=== PATIENT | male | born 1985 | race Two or more races ===

== ENCOUNTER 2024-09-08 09:10 | Emergency (ER) | payer BC ==
[~2024-09-08] VITALS: Ht 170.2 cm; Wt 72.6 kg
[2024-09-08] MEDS ORDERED: ACETAMINOPHEN ES 500 MG TABLET ONE (10:04)
[2024-09-08] MEDS: ACETAMINOPHEN ES 500 MG TABLET PO ONE (10:09)
[2024-09-08 13:23] VITALS: BP 131/76; TEMP 98.2; O2SAT 99
== END 2024-09-08 13:23 | disposition home or self-care (01) ==
LOC: ER 09:20
DX: S50.812A Abrasion of left forearm, initial encounter (principal); S50.811A Abrasion of right forearm, initial encounter; S80.212A Abrasion, left knee, initial encounter; S80.211A Abrasion, right knee, initial encounter; S09.8XXA Other specified injuries of head, initial encounter; Z96.643 Presence of artificial hip joint, bilateral; V00.841A Fall from standing electric scooter, initial encounter; Y93.I9 Activity, other involving external motion; Y92.414 Local residential or business street as the place of occurrence of the external cause; Y99.8 Other external cause status
CPT/HCPCS: 70450-TC; 70486-TC; 72125-TC; 73090-TC; 73130-TC; 73560-TC